=== PATIENT | male | born 1950 | race Caucasian/White ===

== ENCOUNTER 2016-09-21 08:52 | Emergency (ER) | payer MEDICARE ==
[~2016-09-21 08:52] MED LIST: ASA5GR PO; ASAB PO; C5 PO; CELEXA20 PO; COUMADIN10 MG PO; COUMADIN7.5 MG PO; FLURAZEPAM15 MG OR; LOP25 PO; NEUR100 PO; NEXIUM40 PO; PCET PO; PLAVIX PO; PROZAC PO; ULTRAM50 PO; ZOCOR40 PO
== END 2016-09-21 10:45 | disposition home or self-care (01) ==
LOC: ER 08:52
DX: M79.605 Pain in left leg (principal); F17.200 Nicotine dependence, unspecified, uncomplicated; Z88.6 Allergy status to analgesic agent; Z88.8 Allergy status to other drugs, medicaments and biological substances; Z79.899 Other long term (current) drug therapy; Z79.01 Long term (current) use of anticoagulants
CPT/HCPCS: 99283; A9270-GY